=== PATIENT | male | born 1990 | race Two or more races ===

== ENCOUNTER 2023-09-11 17:29 | Emergency (ER) | payer MEDICAID, OTHER ==
[~2023-09-11] VITALS: Ht 175.3 cm; Wt 83.9 kg
[2023-09-11 17:50] VITALS: TEMP 98.4
[2023-09-11 18:07] LABS: BASOPHILS # (AUTO) 0.1 K/uL (0.0-0.2); BASOPHILS % (AUTO) 0.8 % (0.0-2.0); EOSINOPHILS # (AUTO) 0.2 K/uL (0.0-0.7); EOSINOPHILS % (AUTO) 1.6 % (0.0-6.0); HEMATOCRIT 41 % (39-51); HEMOGLOBIN 13.6 g/dL (13.5-17.5); LYMPHOCYTES # (AUTO) 2.3 K/uL (0.8-4.8); MEAN CORPUSCULAR HEMOGLOBIN 29 PG (26.0-33.0); MEAN CORPUSCULAR HGB CONC 33 g/dl (31.0-36.0); MEAN CORPUSCULAR VOLUME 88 fL (80-96); MONOCYTES # (AUTO) 1.2 K/uL (0.1-1.30); MONOCYTES % (AUTO) 7.5 % (2.0-12.0); NEUTROPHILS # (AUTO) 11.8 K/uL (1.8-8.9); NEUTROPHILS % (AUTO) 75.1 % (43.0-81.0); PLATELET COUNT (AUTO) 472 K/uL (150-450); RED BLOOD CELL COUNT(AUTO) 4.67 MIL/uL (4.5-6.0); RED CELL DISTRIBUTION WIDTH 13.9 % (11.5-15.0); WHITE BLOOD COUNT (AUTO) 15.7 K/uL (4.3-11.0)
[2023-09-11] MEDS ORDERED: diphenhydrAMINE HCL 50 MG/ML VIAL ONE (18:08)
[2023-09-11] MEDS ORDERED: OLANZAPINE 10 MG VIAL IM ONE (18:08)
[2023-09-11] MEDS ORDERED: LORAZEPAM INJ 2 MG/ML VIAL ONE (18:09)
[2023-09-11] MEDS: LORAZEPAM INJ 2 MG/ML VIAL IM ONE (18:17)
[2023-09-11] MEDS: diphenhydrAMINE HCL 50 MG/ML VIAL IM ONE (18:17)
[2023-09-11] MEDS: OLANZAPINE 10 MG VIAL IM ONE (18:18)
[2023-09-11 18:33] LABS: ALANINE AMINOTRANSFERASE 62 U/L (12-78); ALBUMIN 3.5 g/dL (3.4-5.0); ALCOHOL, BLOOD < 3 mg/dL (0-10); ALKALINE PHOSPHATASE 88 U/L (46-116); ASPARTATE AMINOTRANSFERASE 83 U/L (15-37); BILIRUBIN,DIRECT 0.2 mg/dL (0.0-0.2); BILIRUBIN,TOTAL 0.6 mg/dL (0.2-1.0); CALCIUM, SERUM 8.4 mg/dL (8.5-10.1); CARBON DIOXIDE 29 mmol/L (21-32); CHLORIDE 104 mmol/L (98-107); CREATININE 0.8 mg/dL (0.6-1.3); GLUCOSE 71 mg/dL (74-106); SODIUM SERUM 140 mmol/L (136-145); TOTAL PROTEIN, SERUM 7.3 g/dL (6.4-8.2); UREA NITROGEN, BLOOD 22 mg/dL (7-18)
[2023-09-11 18:43] LABS: SALICYLATE 1.3 mg/dL (2.8-20.0)
[2023-09-11 18:44] LABS: ACETAMINOPHEN 0 ug/ml (10-30)
[2023-09-11] MEDS ORDERED: LIDOCAINE 2% JEL UROJET 10 ML MM ONE (20:03)
[2023-09-11 20:33] LABS: APPEARANCE,URINE CLEAR (CLEAR); BILIRUBIN,URINE NEGATIVE (NEGATIVE); BLOOD, URINE NEGATIVE Ery/uL (NEGATIVE); COLOR,URINE YELLOW (YELLOW); KETONES,URINE NEGATIVE (NEGATIVE); LEUKOCYTE ESTERASE ,URINE NEGATIVE (NEGATIVE); NITRITE, URINE NEGATIVE (NEGATIVE); PROTEIN,URINE NEGATIVE (NEGATIVE); UGLUCOSE NEGATIVE (NEGATIVE); UROBILINOGEN,URINE 0.2 EU/dL (0.2)
[2023-09-11 20:59] LABS: BARBITURATE, URINE NEGATIVE (NEGATIVE); BENZODIAZEPINE, URINE NEGATIVE (NEGATIVE); CANNABINOID, URINE NEGATIVE (NEGATIVE); COCCAINE, URINE NEGATIVE (NEGATIVE); OPIATE, URINE NEGATIVE (NEGATIVE); PHENCYCLIDINE SCREEN,URINE NEGATIVE (NEGATIVE)
[2023-09-11 21:04] LABS: AMPHETAMINE, URINE POSITIVE (NEGATIVE)
[2023-09-12 04:34] VITALS: BP 130/80; O2SAT 98
== END 2023-09-12 04:01 | disposition home or self-care (01) ==
LOC: ER 17:29
DX: F22 Delusional disorders (principal); F29 Unspecified psychosis not due to a substance or known physiological condition; R45.88 Nonsuicidal self-harm; Z20.822 Contact with and (suspected) exposure to COVID-19
CPT/HCPCS: 99285; 96372 ×2; 85025; 80048; 80076; 81003; 36415; 87426; 80143; 80320; 80307; J2060; J1200; J3490 ×2; G0480